=== PATIENT | male | born 1985 | race Caucasian/White ===

== ENCOUNTER 2018-07-07 02:07 | Emergency (ER) | payer OTHER ==
[~2018-07-07] VITALS: Ht 182.9 cm; Wt 81.0 kg
[2018-07-07 02:08] VITALS: BP 140/87
== END 2018-07-07 02:32 ==
LOC: ER 02:07
DX: F10.129 Alcohol abuse with intoxication, unspecified (principal); Z04.1 Encounter for examination and observation following transport accident; Y90.9 Presence of alcohol in blood, level not specified; V49.88XA Car occupant (driver) (passenger) injured in other specified transport accidents, initial encounter; Y93.89 Activity, other specified; Y92.89 Other specified places as the place of occurrence of the external cause; Y99.8 Other external cause status
CPT/HCPCS: 99283